=== PATIENT | female | born 1990 | race Caucasian/White ===

== ENCOUNTER 2018-02-23 14:53 | Emergency (ER) | payer OTHER ==
[~2018-02-23] VITALS: Ht 160 cm; Wt 90.2 kg
[2018-02-23 16:36] LABS: BASOPHIL (%) 0.4 % (0-1); EOSINOPHIL (%) 1.5 % (0-5); EOSINOPHIL COUNT 0.2 K/uL (0-0.3); HEMATOCRIT 41.9 % (36.0-46.0); HEMOGLOBIN 14.6 G/DL (11.9-15.5); IMMATURE GRANULOCYTE (%) 0.3 % (0.0-0.7); LYMPHOCYTE (%) 24.6 % (15-42); LYMPHOCYTE COUNT 2.5 K/uL (1.0-2.8); MCH 31.1 PG (29.0-34.0); MCHC 34.8 G/DL (30.0-36.0); MCV 89.3 FL (83-99); MONOCYTE COUNT 0.4 K/uL (0-0.8); NEUTROPHIL (%) 69.2 % (45-76); PLATELET COUNT 137 K/uL (156-360); RBC DIS.WIDTH-CV 11.9 % (11.8-14.6); RBC DIS.WIDTH-SD 38.5 % (39-53); RED BLOOD COUNT 4.69 M/uL (3.80-5.20); WHITE BLOOD COUNT 10.2 K/uL (4.1-10.2)
[2018-02-23 16:49] LABS: ALBUMIN 4.4 g/dL (3.2-4.8)
[2018-02-23 16:50] LABS: CHLORIDE 106 mEq/L (99-109); POTASSIUM 4.2 mEq/L (3.7-5.4); SODIUM 138 mEq/L (136-147)
[2018-02-23 16:52] LABS: GLUCOSE 96 mg/dL (70-99); TOTAL PROTEIN 7.2 g/dL (6.4-8.3)
[2018-02-23 16:54] LABS: TOTAL BILIRUBIN 0.4 mg/dL (0.0-1.0)
[2018-02-23 16:55] LABS: ALKALINE PHOSPHATASE 59 IU/L (3-129)
[2018-02-23 16:56] LABS: CREATININE 0.8 mg/dL (0.6-1.3); GFR ESTIMATE (CALCULATED) > 59 mL/min/
[2018-02-23 16:57] LABS: AST (GOT) 18 IU/L (2-34); UREA NITROGEN (BUN) 14 mg/dL (9-23)
[2018-02-23 16:58] LABS: ALT (GPT) 9 IU/L (3-49)
[2018-02-23 17:02] LABS: TROP-I INTERPRETATION NEGATIVE; TROPONIN-I < 0.01 ng/mL (0.0-0.30)
[2018-02-23 17:04] LABS: QUANTITATIVE HCG < 4.0 MIU/ML
[2018-02-23 18:07] VITALS: BP 134/83
== END 2018-02-23 18:14 | disposition home or self-care (01) ==
LOC: EME 14:53
PROVIDERS: Emergency Medicine
DX: R55 Syncope and collapse (principal)
CPT/HCPCS: 70450; 80053; 84484; 84702; 85025; 93005; 99281; 99285; J7040